=== PATIENT | female | born 1985 | race Caucasian/White ===

== ENCOUNTER 2016-06-04 21:25 | Emergency (ER) | payer SELFPAY ==
[~2016-06-04 21:25] MED LIST: ACETAMINOPHEN500 M5 PO; COLACE100 M1 PO; FIORICET1 TA1 PO; IBUPROFEN800 M1 PO; MILK OF MAGNESIA PO; MOTRIN800 MG PO; NAPROSYN500 MG PO; NORCO 5/325 TAB1 TAB PO; PERCOCET 5/3251 TAB PO; PRENATAL TABLE1 EAC3 PO; PRENATAL1 TAB; TUMS300 M1 PO
[2016-06-04] MEDS ORDERED: NO HOME MEDICATION XX (22:30)
[2016-06-04 23:01] LABS: PREGNANCY-SERUM NEGATIVE (NEGATIVE)
[2016-06-04 23:06] LABS: ANION GAP 11 mmol/L (0-20); BLOOD UREA NITROGEN 14 mg/dl (6-24); CALCIUM 8.7 mg/dl (8.5-10.5); CARBON DIOXIDE-VENOUS 25 mmol/L (22-32); CHLORIDE 107 mmol/l (96-110); CREATININE 1.43 mg/dl (0.50-1.10); GLUCOSE 91 mg/dL (70-110); POTASSIUM 3.6 mmol/L (3.7-5.1); SODIUM 139 mmol/L (135-145); eGFR VALUE FOR BLACK 58 mL/Min
[2016-06-04 23:10] LABS: TSH-THYROID STIMULATING HORM. 1.68 uIU/ml (0.40-3.80)
[2016-06-04] MEDS ORDERED: XANAX0.25 M1 PO (23:31)
== END 2016-06-05 00:15 ==
LOC: EDMED 21:25
PROVIDERS: Emergency Medicine
DX: F41.9 Anxiety disorder, unspecified (principal); N28.9 Disorder of kidney and ureter, unspecified; I10 Essential (primary) hypertension; Z87.891 Personal history of nicotine dependence